=== PATIENT | female | born 1955 | race Caucasian/White ===

== ENCOUNTER 2023-07-28 11:13 | Inpatient (IN) | payer MEDICARE, BC ==
[2023-07-28] VITALS (9 sets, daily range): BP systolic 100–116; BP diastolic 41–55; PULSE 79–95; RESP 16–25; TEMP 97.5–98; O2SAT 95–100
[~2023-07-28] VITALS: Ht 172.7 cm; Wt 81.0 kg
[2023-07-28 12:00] LABS: Basophils # (auto) 0.1 10 ^3/uL (0-0.2); Eosinophils # (auto) 0.3 10 ^3/uL (0-0.8); Hematocrit 14.9 % (36.0-46.0); Mean Corpuscular Hemoglobin 18.7 pg (28.0-32.0); Mean Corpuscular Hgb Conc. 26.8 g/dL (32.0-36.0); Monocytes # (auto) 0.4 10 ^3/uL (0-1.3); Red Blood Cells 2.14 10^6/uL (4.0-5.20); White Blood Cell 6.6 10^3/uL (4.4-10.8)
[2023-07-28 12:02] LABS: Basophils % (auto) 1.2 % (0.0-2.0); Lymphocytes # (auto) 0.9 10 ^3/uL (0.4-5.4); Lymphocytes % (auto) 14.2 % (10.0-50.0); Mean Corpuscular Volume 69.6 fL (80.0-100.0); Monocytes % (auto) 5.8 % (0.0-12.0); Neutrophils % (auto) 74.8 % (37.0-80.0); Nucleated Red Blood Cells % 0.2 %; Red Cell Distribution Width 19.9 % (11.8-14.3)
[2023-07-28 12:09] LABS: Chloride 108 mmol/L (98-107); Potassium 3.4 mmol/L (3.5-5.1); Sodium 142 mmol/L (136-145)
[2023-07-28 12:10] LABS: Anion Gap 9 (5-15); Carbon Dioxide 25 mmol/L (20-30)
[2023-07-28 12:11] LABS: Calcium 8.6 mg/dL (8.5-10.1)
[2023-07-28 12:16] LABS: BUN/Creatinine Ratio 13.1 (10.0-20.0); Blood Urea Nitrogen 8 mg/dL (9-23); Glucose 120 mg/dL (74-106)
[2023-07-28 13:37] LABS: Anisocytosis Slight; Hypochromia Moderate; Platelet Estimate Adequate; Polychromasia Slight
[2023-07-28] MEDS ORDERED: ONDANSETRON HCL 4 MG/2 ML VIAL IV PRN (15:30)
[2023-07-28] MEDS ORDERED: HYDROcodone-ACET 5/325MG TAB PO PRN (15:30)
[2023-07-28] MEDS ORDERED: DOCUSATE SOD 100 MG CAP PO PRN (15:30)
[2023-07-28] MEDS ORDERED: NITROGLYCERIN 0.4 MG SL TAB SL PRN (15:30)
[2023-07-28] MEDS ORDERED: MORPHINE SULFATE INJ 2 MG/ml SYRG IV PRN ×2 (15:30)
[2023-07-28] MEDS ORDERED: DEXTROSE (50%) 50ML SYRG IV PRN (15:45)
[2023-07-28] MEDS ORDERED: IPRATROPIUM BROM 0.5 MG/2.5ML INH SOL NEB PRN (15:45)
[2023-07-28] MEDS ORDERED: ALBUTEROL SULF 2.5 MG/0.5ML(0.5%) NEB SOLN NEB PRN (15:45)
[2023-07-28] MEDS ORDERED: LEVO125T7 PO (15:51)
[2023-07-28] MEDS ORDERED: GABA-1250 PO (15:51)
[2023-07-28] MEDS ORDERED: ATOR40TA52 PO (15:51)
[2023-07-28] MEDS: InsuLIN REG 1unit/0.01ml Soln (100units/ml) SC SCH (17:00)
[2023-07-28] MEDS: POTASSIUM EFFERVESENT TAB 25 MEQ PO ONE (17:06)
[2023-07-28] MEDS: PANTOPRAZOLE 40 MG/10 ML VIAL INJ IV ONE (17:06)
[2023-07-28] MEDS: ACCU-CHEK COMFORT CURVE STRIP VI SCH (19:14)
[2023-07-28] MEDS: cefTRIAXone 1GM/50ML D5W 50 ML IV ONE (20:24)
[2023-07-28 21:19] LABS: Hematocrit 17.7 % (36.0-46.0)
[2023-07-28 21:26] LABS: Hemoglobin 4.9 g/dL (12.2-16.2)
[2023-07-28] MEDS ORDERED: FUR20T PO (21:51)
[2023-07-28] MEDS ORDERED: ASPI-325 PO (21:51)
[2023-07-28] MEDS ORDERED: APIX5TAB PO (21:51)
[2023-07-28] MEDS ORDERED: MET25T PO (21:51)
[2023-07-28] MEDS ORDERED: TICA90TA PO (21:51)
[2023-07-28] MEDS: GABAPENTIN 300 MG CAP PO SCH (22:43)
[2023-07-28] MEDS: ATORVASTATIN 20 MG TAB PO SCH (22:44)
[2023-07-29] VITALS (15 sets, daily range): BP systolic 101–131; BP diastolic 40–67; PULSE 68–84; RESP 17–20; TEMP 97.2–98.4; O2SAT 95–98
[2023-07-29] MEDS: LEVOTHYROXINE SODIUM 25 MCG TAB PO SCH (06:30)
[2023-07-29] MEDS: LEVOTHYROXINE SODIUM 100 MCG TAB PO SCH (06:31)
[2023-07-29 06:56] LABS: Basophils # (auto) 0.1 10 ^3/uL (0-0.2); Basophils % (auto) 1.2 % (0.0-2.0); Eosinophils # (auto) 0.4 10 ^3/uL (0-0.8); Lymphocytes # (auto) 1.5 10 ^3/uL (0.4-5.4); Mean Corpuscular Hemoglobin 22.5 pg (28.0-32.0); Monocytes # (auto) 0.4 10 ^3/uL (0-1.3); Neutrophils # (auto) 4.2 10 ^3/uL (1.6-8.6)
[2023-07-29 07:01] LABS: Eosinophils % (auto) 6.2 % (0.0-7.0); Hematocrit 23.4 % (36.0-46.0); Lymphocytes % (auto) 22.4 % (10.0-50.0); Mean Corpuscular Hgb Conc. 29.6 g/dL (32.0-36.0); Mean Corpuscular Volume 76.1 fL (80.0-100.0); Monocytes % (auto) 5.6 % (0.0-12.0); Neutrophils % (auto) 64.6 % (37.0-80.0); Nucleated Red Blood Cells % 0.2 %; Red Blood Cells 3.07 10^6/uL (4.0-5.20); White Blood Cell 6.5 10^3/uL (4.4-10.8)
[2023-07-29 07:06] LABS: % Iron Saturation 6.3 % (15-50); Albumin 3.7 g/dL (3.2-4.8); Alkaline Phosphatase 77 U/L (46-116); Anion Gap 5 (5-15); Aspartate Aminotransferase < 8 U/L (13-40); BUN/Creatinine Ratio 11.1 (10.0-20.0); Bilirubin, Total 2.5 mg/dL (0.2-1.0); Blood Urea Nitrogen 6 mg/dL (9-23); Calcium 8.7 mg/dL (8.7-10.4); Carbon Dioxide 26 mmol/L (20-30); Chloride 111 mmol/L (98-107); Glucose 100 mg/dL (74-106); Potassium 3.8 mmol/L (3.5-5.1); Sodium 142 mmol/L (136-145); Total Protein 5.9 g/dL (5.7-8.2)
[2023-07-29 07:08] LABS: Hemoglobin 6.9 g/dL (12.2-16.2)
[2023-07-29 07:09] LABS: Alanine Aminotransferase < 9 U/L (7-40)
[2023-07-29 07:39] LABS: LDL Cholesterol 36 mg/dL (< 100); Triglycerides 165 mg/dL (< 150)
[2023-07-29 07:41] LABS: Cholesterol 84 mg/dL (< 200); HDL Cholesterol 26 mg/dL (40-59)
[2023-07-29] MEDS: cefTRIAXone 1GM/50ML D5W 50 ML IV SCH (09:51)
[2023-07-29] MEDS: PANTOPRAZOLE 40 MG/10 ML VIAL INJ IV SCH (09:51)
[2023-07-29] MEDS: AZITHROMYCIN 500MG/ 250ML 250 ML IV ONE (09:56)
[2023-07-29] MEDS: ERGOCALCIFEROL 50,000 UNIT(1.25MG) CAP PO SCH (11:06)
[2023-07-29] MEDS: CYANOCOBALAMIN 500 MCG TAB PO SCH (11:06)
[2023-07-29] MEDS ORDERED: FERR324T25 PO (13:10)
[2023-07-29] MEDS ORDERED: EMPA1TAB3 PO (13:10)
[2023-07-29] MEDS ORDERED: ACET500T58 PO (13:10)
[2023-07-29] MEDS ORDERED: POTA-220 PO (13:10)
[2023-07-29] MEDS: AZITHROMYCIN 500MG/ 250ML 250 ML IV SCH (14:05)
[2023-07-29 15:41] LABS: Hemoglobin 7.9 g/dL (12.2-16.2)
[2023-07-29 15:43] LABS: Hematocrit 26.9 % (36.0-46.0)
[2023-07-29 18:12] LABS: Amphetamine Screen, Urine Neg (NEGATIVE); Barbiturate Scree,Urine Neg (NEGATIVE); Benzodiazephine Screen, Urine Neg (NEGATIVE); Cannabinoid Screen, Urine Neg (NEGATIVE); Cocaine Screen, Urine Neg (NEGATIVE); Opiate Scree,Urine Neg (NEGATIVE); Phencyclidine Screen, Urine Neg (NEGATIVE)
[2023-07-29 18:34] LABS: Urine Bacteria NONE SEEN /hpf (None Seen); Urine Blood Negative /uL (Negative); Urine Clarity Clear (Clear); Urine Color Colorless (Yellow); Urine Protein, UAD Negative (Negative); Urine Specific Gravity 1.016 (1.001-1.035); Urine WBC 10 /hpf (0 - 5); Urine pH 6.5 (5.0-8.0)
[2023-07-30] VITALS (11 sets, daily range): BP systolic 103–126; BP diastolic 56–66; PULSE 67–106; RESP 17–20; TEMP 97.1–98.3; O2SAT 93–100
[2023-07-30 06:09] LABS: Basophils # (auto) 0.1 10 ^3/uL (0-0.2); Basophils % (auto) 1.1 % (0.0-2.0); Eosinophils # (auto) 0.5 10 ^3/uL (0-0.8); Eosinophils % (auto) 6.2 % (0.0-7.0); Hematocrit 25.9 % (36.0-46.0); Hemoglobin 7.9 g/dL (12.2-16.2); Lymphocytes # (auto) 1.1 10 ^3/uL (0.4-5.4); Lymphocytes % (auto) 14.5 % (10.0-50.0); Mean Corpuscular Hemoglobin 23.8 pg (28.0-32.0); Mean Corpuscular Hgb Conc. 30.5 g/dL (32.0-36.0); Monocytes # (auto) 0.5 10 ^3/uL (0-1.3); Monocytes % (auto) 6.5 % (0.0-12.0); Neutrophils # (auto) 5.3 10 ^3/uL (1.6-8.6); Neutrophils % (auto) 71.7 % (37.0-80.0); Nucleated Red Blood Cells % 0.1 %; Red Blood Cells 3.31 10^6/uL (4.0-5.20); White Blood Cell 7.5 10^3/uL (4.4-10.8)
[2023-07-30 06:11] LABS: Red Cell Distribution Width 23.6 % (11.8-14.3)
[2023-07-30 06:23] LABS: Alkaline Phosphatase 71 U/L (46-116); Anion Gap 6 (5-15); BUN/Creatinine Ratio 15.5 (10.0-20.0); Blood Urea Nitrogen 9 mg/dL (9-23); Calcium 8.5 mg/dL (8.5-10.1); Carbon Dioxide 28 mmol/L (20-30); Chloride 107 mmol/L (98-107); Glucose 111 mg/dL (74-106); Potassium 4.1 mmol/L (3.5-5.1); Sodium 141 mmol/L (136-145)
[2023-07-30 06:24] LABS: Albumin 3.6 g/dL (3.2-4.8); Aspartate Aminotransferase < 8 U/L (13-40); Total Protein 5.4 g/dL (5.7-8.2)
[2023-07-30 06:26] LABS: Alanine Aminotransferase < 9 U/L (7-40)
[2023-07-30] MEDS ORDERED: SODIUM CHLORIDE LOCK 10 ML ONE (09:06)
[2023-07-30] MEDS: LIDOCAINE VISCOUS 2% 15ML UD ONE (15:22)
[2023-07-30] MEDS: MIDAZOLAM HCL 5 MG/ML-1ML VIAL ONE (15:28)
[2023-07-30] MEDS: fentaNYL CITRATE 100 MCG/2 ML VL ONE (15:28)
[2023-07-30] MEDS: diphenhdrAMINE HCL 50 MG/1 ML VL ONE (15:28)
[2023-07-30] MEDS: SUCRALFATE 1 GM/10 ML ORAL SUSP PO SCH (18:54)
[2023-07-30] MEDS: ACETAMINOPHEN 325 MG TAB PO PRN (21:01)
[2023-07-30] MEDS: PANTOPRAZOLE 40 MG TAB PO SCH (21:02)
[2023-07-31] VITALS: BP 115/58; PULSE 87; RESP 20; TEMP 97.9; O2SAT 95
[2023-07-31 04:00] VITALS: BP 110/52; PULSE 91; RESP 20; TEMP 98; O2SAT 96
[2023-07-31 06:27] LABS: Basophils # (auto) 0.1 10 ^3/uL (0-0.2); Eosinophils # (auto) 0.4 10 ^3/uL (0-0.8); Mean Corpuscular Volume 79.2 fL (80.0-100.0); Monocytes # (auto) 0.3 10 ^3/uL (0-1.3); Nucleated Red Blood Cells % 0.1 %; White Blood Cell 5.5 10^3/uL (4.4-10.8)
[2023-07-31 06:30] LABS: Basophils % (auto) 1.1 % (0.0-2.0); Eosinophils % (auto) 8.1 % (0.0-7.0); Hematocrit 25.2 % (36.0-46.0); Hemoglobin 7.6 g/dL (12.2-16.2); Lymphocytes # (auto) 1.3 10 ^3/uL (0.4-5.4); Lymphocytes % (auto) 23.8 % (10.0-50.0); Mean Corpuscular Hgb Conc. 30.3 g/dL (32.0-36.0); Monocytes % (auto) 6.2 % (0.0-12.0); Neutrophils # (auto) 3.4 10 ^3/uL (1.6-8.6); Neutrophils % (auto) 60.8 % (37.0-80.0); Red Blood Cells 3.18 10^6/uL (4.0-5.20); Red Cell Distribution Width 24.9 % (11.8-14.3)
[2023-07-31] MEDS ORDERED: CYAN500T3 PO (06:36)
[2023-07-31] MEDS ORDERED: ERGO1CAP23 PO (06:36)
[2023-07-31] MEDS ORDERED: FERR324T25 PO (06:36)
[2023-07-31] MEDS ORDERED: SUCR1SUS26 PO (06:36)
[2023-07-31 06:38] VITALS: O2SAT 94
[2023-07-31 06:50] LABS: Chloride 109 mmol/L (98-107); Potassium 3.9 mmol/L (3.5-5.1); Sodium 141 mmol/L (136-145)
[2023-07-31 06:51] LABS: Anion Gap 5 (5-15); Calcium 8.5 mg/dL (8.5-10.1); Carbon Dioxide 27 mmol/L (20-30)
[2023-07-31 06:56] LABS: BUN/Creatinine Ratio 12.3 (10.0-20.0); Blood Urea Nitrogen 7 mg/dL (9-23); Glucose 120 mg/dL (74-106)
[2023-07-31 08:00] VITALS: BP 111/56; PULSE 82; PULSE 83; RESP 18; TEMP 98.2; O2SAT 93
[2023-07-31 09:23] VITALS: BP 113/55; PULSE 85; RESP 20; TEMP 36.7; O2SAT 97
== END 2023-07-31 11:00 | disposition home or self-care (01) | DRG 177 ==
LOC: ER 11:13 → EDBD 11:13 → TELE 15:34 → TELE-CENTR 21:42
PROVIDERS: ADMIT Internal Medicine; ATTEND Emergency Medicine
PROC: 30233N1 Transfusion of Nonautologous Red Blood Cells into Peripheral Vein, Percutaneous Approach (ICD-10-PCS; 2023-07-29)
PROC: 0DB68ZX Excision of Stomach, Via Natural or Artificial Opening Endoscopic, Diagnostic (ICD-10-PCS; 2023-07-30)
PROC: 0DB98ZX Excision of Duodenum, Via Natural or Artificial Opening Endoscopic, Diagnostic (ICD-10-PCS; principal; 2023-07-30 15:17)
DX: J15.69 Pneumonia due to other Gram-negative bacteria (principal); J96.00 Acute respiratory failure, unspecified whether with hypoxia or hypercapnia; E11.621 Type 2 diabetes mellitus with foot ulcer; K25.9 Gastric ulcer, unspecified as acute or chronic, without hemorrhage or perforation; K29.70 Gastritis, unspecified, without bleeding; E03.9 Hypothyroidism, unspecified; E11.42 Type 2 diabetes mellitus with diabetic polyneuropathy; E87.6 Hypokalemia; I25.10 Atherosclerotic heart disease of native coronary artery without angina pectoris; L97.529 Non-pressure chronic ulcer of other part of left foot with unspecified severity; L97.519 Non-pressure chronic ulcer of other part of right foot with unspecified severity; K44.9 Diaphragmatic hernia without obstruction or gangrene; D50.9 Iron deficiency anemia, unspecified; Z95.1 Presence of aortocoronary bypass graft; Z90.49 Acquired absence of other specified parts of digestive tract; Z80.8 Family history of malignant neoplasm of other organs or systems; Z79.82 Long term (current) use of aspirin; Z79.899 Other long term (current) drug therapy
CPT/HCPCS: 36415; 36430; 43239; 71045; 80048; 80053; 80061; 80307; 81001; 82270; 82306; 82607; 82728; 82962; 83540; 83550; 84443; 84484; 85014; 85018; 85025; 85045; 85379; 86850; 86900; 86901; 86920; 87086; 93005; 96365; 96375; 99291; C9113; G0378; J2250

== ENCOUNTER 2023-08-27 15:33 | Emergency (ER) | payer MEDICARE, BC ==
[~2023-08-27] VITALS: Ht 170.2 cm; Wt 80.8 kg
[~2023-08-27 15:33] MED LIST: ACET500T58 PO; ASPI-325 PO; ATOR40TA52 PO; CYAN500T3 PO; EMPA1TAB3 PO; ERGO1CAP23 PO; FERR324T25 PO; FUR20T PO; GABA-1250 PO; LEVO125T7 PO; MET25T PO; POTA-220 PO; SUCR1SUS26 PO; TICA90TA PO
[2023-08-27 17:00] LABS: Basophils # (auto) 0.1 10 ^3/uL (0-0.2); Basophils % (auto) 1.4 % (0.0-2.0); Eosinophils # (auto) 0.5 10 ^3/uL (0-0.8); Eosinophils % (auto) 6.6 % (0.0-7.0); Hemoglobin 9.7 g/dL (12.2-16.2); Lymphocytes # (auto) 1.3 10 ^3/uL (0.4-5.4); Lymphocytes % (auto) 17.3 % (10.0-50.0); Mean Corpuscular Hemoglobin 27.6 pg (28.0-32.0); Mean Corpuscular Hgb Conc. 30.3 g/dL (32.0-36.0); Monocytes # (auto) 0.4 10 ^3/uL (0-1.3); Monocytes % (auto) 5.5 % (0.0-12.0); Neutrophils # (auto) 5.3 10 ^3/uL (1.6-8.6); Neutrophils % (auto) 69.2 % (37.0-80.0); Nucleated Red Blood Cells % 0.1 %; Red Blood Cells 3.51 10^6/uL (4.0-5.20); White Blood Cell 7.6 10^3/uL (4.4-10.8)
[2023-08-27 17:02] LABS: Red Cell Distribution Width 20.1 % (11.8-14.3)
[2023-08-27 17:10] LABS: Alanine Aminotransferase 15 U/L (7-40); Albumin 4.4 g/dL (3.2-4.8); Alkaline Phosphatase 88 U/L (46-116); Anion Gap 6 (5-15); Aspartate Aminotransferase 16 U/L (13-40); BUN/Creatinine Ratio 29.3 (10.0-20.0); Bilirubin, Total 1.7 mg/dL (0.2-1.0); Blood Urea Nitrogen 22 mg/dL (9-23); Calcium 9.3 mg/dL (8.7-10.4); Carbon Dioxide 24 mmol/L (20-30); Chloride 111 mmol/L (98-107); Glucose 141 mg/dL (74-106); Potassium 3.8 mmol/L (3.5-5.1); Sodium 141 mmol/L (136-145); Total Protein 6.8 g/dL (5.7-8.2)
[2023-08-27 17:21] LABS: INR 1.04 (0.9-1.15); Partial Thromboplastin Time 28.2 SEC (24.5-34.5); Prothrombin Time 10.9 sec (9.3-11.8)
[2023-08-27] MEDS: BUDESONIDE (INHALATION) 0.5 MG/2 ML NEB NEB ONE (20:15)
[2023-08-27] MEDS: IPRATROPIUM BROM 0.5 MG/2.5ML INH SOL NEB ONE (20:15)
[2023-08-27] MEDS: ALBUTEROL SULF 2.5 MG/0.5ML(0.5%) NEB SOLN NEB ONE (20:15)
[2023-08-27] MEDS: IOHEXOL 350 MG/ML 100ML IJ ONE (20:21)
[2023-08-28 02:40] VITALS: BP 143/68; PULSE 86; RESP 18; TEMP 98.2
[2023-08-28 02:43] VITALS: O2SAT 97
== END 2023-08-28 02:54 | disposition left against medical advice (07) ==
LOC: ER 15:33
DX: D64.89 Other specified anemias (principal); R06.00 Dyspnea, unspecified; E11.9 Type 2 diabetes mellitus without complications; I25.2 Old myocardial infarction; E07.9 Disorder of thyroid, unspecified; Z95.1 Presence of aortocoronary bypass graft; Z98.61 Coronary angioplasty status; Z90.49 Acquired absence of other specified parts of digestive tract
CPT/HCPCS: 36415; 36600; 71045; 71275; 80053; 82805; 83605; 83880; 84484; 85025; 85379; 85610; 85730; 87040; 93005; 94640; 99285; J7644; Q9967